=== PATIENT | female | born 1930 | race Hispanic/Latino ===

== ENCOUNTER 2018-04-01 06:04 | Day surgery (SDC) | payer MEDICARE ==
[2018-03-30 09:39] VITALS: BMI 21.7
[2018-04-01] MEDS ORDERED: Propofol 10 mg/ml Inj (20 ML) ONE ×2 (07:26→07:52)
[2018-04-01] MEDS ORDERED: HYDROmorphone 0.5 mg/0.5 ml ISec IVP PRN (08:07)
[2018-04-01 09:27] VITALS: PULSE 85
[2018-04-01 11:08] VITALS: BP 129/80; RESP 15; TEMP 97.7; O2SAT 100
--- NOTE | 2018-04-01 12:13 | RAD ---
PROCEDURE: Intraoperative Fluoroscopy. HISTORY: LT. WRIST DISTAL RADIUS FX. FINDINGS: Fluoroscopic assistance was provided for close reduction. Please refer to the operative report from MOHSEN Andrea, , MD [facility]. Total fluoroscopic time (continuous mode) utilized during the procedure 27.7 (seconds). Total exam DLP: (mGy) 0.45.
--- NOTE | 2018-04-06 18:13 | PCM.SURG1 ---
Surgeon's Initial Post Op Note - Surgeon's Notes Surgeon: Tatum Azul MD [employer] Inserting Machine Operator: Odalis Ewing PA-C Type of Anesthesia: IV Sedation Pre-Operative Diagnosis: Left #1 wrist displaced distal radius fracture. #2 elbow min-displaced lateral epicondyle fracture distal humerus Operative Findings: Left #1 wrist displaced distal radius fracture. #2 elbow min-displaced lateral epicondyle fracture distal humerus Post-Operative Diagnosis: Left #1 wrist displaced distal radius fracture. #2 elbow min-displaced lateral epicondyle fracture distal humerus Operation Performed: Left #1 closed reduction distal radius fracture. #2 closed reduction distal humerus lateral epicondyle fracture. #3 placement in well padded long arm cast Specimen/Specimens Removed: specimen= none. complications= none. tourniquet time= 0min. implants= none Estimated Blood Loss: EBL {In ML}: 0 Blood Products Given: N/A Drains Used: No Drains Post-Op Condition: Good Date of Surgery/Procedure: 04/01/18 Time of Surgery/Procedure: 07:00
--- NOTE | 2018-04-07 04:40 | OP ---
PROCEDURE DATE: 04/01/2018 PREOPERATIVE DIAGNOSES: Left: 1. Wrist displaced distal radius fracture. 2. Elbow minimally displaced lateral epicondyle fracture distal humerus. POSTOPERATIVE DIAGNOSES: Left: 1. Wrist displaced distal radius fracture. 2. Elbow minimally displaced lateral epicondyle fracture distal humerus. PROCEDURE: Left: 1. Closed reduction distal radius fracture. 2. Closed reduction distal humerus lateral epicondyle fracture. 3. Placement in well-padded, long arm cast. SURGEON: Tatum Azul MD GLUER AND WEDGER: Odalis Ewing PA-C JUSTIFICATION FOR GLUER AND WEDGER: Odalis Ewing is a certified physician syrup mixer assistant, whose skilled surgical service was an absolute necessity for successful completion of the procedure as he provided skilled surgical assistance with positioning of patient, positioning of extremity, management of surgical field, placement of long arm cast, maintenance of fracture reduction. Odalis Ewing was present for the entire case and was an absolute necessity for successful completion of this procedure. TYPE OF ANESTHESIA: IV sedation. SPECIMENS: None. COMPLICATIONS: None. TOURNIQUET TIME: 0 minutes. IMPLANTS: None. ESTIMATED BLOOD LOSS: 0 mL. DRAINS: None. DISPOSITION: The patient was extubated and transferred to PACU in stable condition and tolerated the procedure well. INDICATIONS FOR PROCEDURE: The patient is an 87-year-old female who is right hand dominant with a past medical history significant for hypertension, who presents to the office for the first time under my care on 03/29/2018, with left wrist and left elbow pain and swelling since a fall on 03/23/2018, landing on her left upper extremity. She was seen at [facility] where after evaluation by ER staff and reviewed imaging, she was diagnosed with a displaced left wrist distal radius fracture with dorsal angulation. She was placed in a brace and instructed to follow up with an orthopedic surgeon as an outpatient. She also had left elbow pain. On initial evaluation in my office on 03/29/2018, she underwent x-rays of the left wrist and of the left elbow. X-rays of the left wrist in my office revealed a displaced distal radius fracture, with significant dorsal angulation and impaction. X-rays of the left elbow also revealed a lateral epicondyle/condyle fracture that was minimally displaced. She underwent attempt at a closed reduction which failed due to her inability to tolerate the pain in my office. She was placed on a long-arm split to treat the distal humerus and distal radius fractures. She was indicated for closed reduction under sedation or anesthesia and was placed on the schedule at [facility] on 04/01/2018. She saw her primary care doctor, Dr. Cedrick Rojas for preoperative medical evaluation and clearance, and the procedure was scheduled. She also underwent CT of the left wrist and left elbow, so we could better identify and categorize the fracture at both regions. The CT of the left elbow was done at [facility] on 03/30/2018 and read as; 1. Prominent elbow joint effusion as noted. 2. Cortical irregularity and/or deformity seen at the level of the lateral humeral condyle concerning for fracture deformity. 3. A 4-mm sclerotic foci at the ulnar aspect of the radial head, nonspecific. 4. Multiple displaced left-sided rib fracture deformities are noted. 5. Prominent lobulated, partially calcified masses are noted in the left breast. CT of the left wrist also done at [facility] on 03/30/2018 was read as; 1. Impacted fracture deformity of the distal radius extending from the level of metaphysis to the physis and into the epiphysis. Mild distraction at the ulnar aspect of the physis. Comminuted fracture fragment noted at the dorsal aspect of the wrist. 2. Severe degenerative changes noted at the first carpometacarpal joint. 3. Probable chondrocalcinosis noted at the level of the scapholunate interval and TFCC. 4. Subchondral cyst formation and/or sclerosis noted at the proximal pole of the hamate. 5. Additional degenerative changes noted within the proximal carpal row. She was indicated for close reduction of the distal radius fracture and distal humerus fracture under IV sedation or anesthesia at [facility], and she was placed on the schedule. The risks, benefits, and alternatives of the procedure were discussed at length with the patient and her family. The risks include but are not limited to skin complications from the casting and pressure, malunion, nonunion, stiffness, inability to return to preinjury level of activity, loss of reduction, need for further surgery, neurovascular compromise, compartment syndrome, anesthesia reactions including . After answering all of the questions, she stated that she understood the risks and wishes to proceed with surgery. I spent a long time with the patient and her family revealing the x-rays and diagnosis as well as the procedure to be done and they stated that they had a good understanding of the procedure as well as their multiple diagnoses. DESCRIPTION OF PROCEDURE: The patient was identified in the preoperative holding area and the left elbow and wrist were marked for the procedure. After brief discussion with the anesthesia staff, she was taken to the OR and placed in a well-padded operating room table with a radiolucent hand table attachment. An initial time-out was done with the surgeon, anesthesia staff, OR staff, all in agreement with the patient, procedure being done, and the extremity being operated on. IV sedation was administered by anesthesia staff without any complications. Once she was under IV sedation, the previous splint was removed and indeed the swelling had been improved as the patient was compliant with ice and elevation. A final time-out was done with the surgeon, anesthesia staff, OR staff, all in agreement with the patient, procedure being done, and the extremity being operated on. With the use of biplanar fluoroscopic imaging, both fractures were confirmed and identified being the distal radius fracture and distal humerus fracture. We first turned our attention to the distal radius fracture and treated both fractures as independent fractures with one long arm cast. We first focused on the distal radius fracture and a closed reduction attempt was carried out. My syrup mixer assistant helped maintain the fracture reduction with traction and pressure on the arm with the fingers in traction. A well-padded short arm cast was placed initially with a good mold, maintaining the fracture reduction, confirmed in an anatomic position with an anatomic reduction achieved. This was confirmed using biplanar fluoroscopic imaging after the cast hardened to confirm that the fracture reduction was maintained. We then turned our attention to the distal humerus/elbow fracture. Once again with the help of my syrup mixer assistant, a reduction maneuver was carried out and the fracture was held in an anatomic reduction. The short-arm cast was then expanded upon to become a long arm cast at 90 degrees flexion, also in a neutral position. A well-padded long arm cast was extended up to the proximal two-thirds of the humeral shaft. A mold was placed on the lateral epicondyle to maintain the anatomic reduction. With the use of biplanar fluoroscopic imaging, after the cast hardened, we confirmed that we were able to maintain anatomic reduction of the distal humerus fracture. This was all made possible with the help of my syrup mixer assistant who not only helped the fracture reduction, but also helped to place the long arm well -padded cast with good mold. The patient was then awaken from IV sedation once the cast hardened and she was placed in a well-padded arm sling. She was then transferred to PACU in stable condition and tolerated the procedure well. DISPOSITION: The patient will follow up in my office within one week and already has a postoperative appointment setup. She was given a prescription for Percocet for pain control. She was instructed to keep her wrist and her elbow above the level of her heart as much as possible and ice and elevate as much as possible. They have been warned about the dangerous signs and warning signs of developing compartment syndrome or loss of neurovascular status and they will contact me with any questions or concerns. Tatum Azul MD
== END 2018-04-01 13:30 | disposition home or self-care (01) ==
LOC: C.SDS 06:04
PROVIDERS: ATTEND Student in an Organized Health Care Education/Training Program
DX: S52.532A Colles' fracture of left radius, initial encounter for closed fracture (principal); S42.462A Displaced fracture of medial condyle of left humerus, initial encounter for closed fracture
CPT/HCPCS: 24535; 25605; J1170; J2704; J3010